=== PATIENT | female | born 1995 | race Caucasian/White ===

== ENCOUNTER → 2022-09-04 | Outpatient (CLI) | payer BC ==
[2022-09-06 15:09] LABS: HPV 16 Negative (Negative); HPV 18 Negative (Negative); HPV OTHER HR TYPES Negative (Negative)
== END | disposition home or self-care (01) ==
LOC: LAB 11:04 → LAB SHORT 11:04
PROVIDERS: Family Medicine
DX: Z01.411 Encounter for gynecological examination (general) (routine) with abnormal findings (principal)
CPT/HCPCS: 87624; G0145

== ENCOUNTER 2024-01-13 08:28 | Emergency (ER) | payer OTHER ==
[~2024-01-13] VITALS: Ht 177.8 cm; Wt 108.4 kg
[2024-01-13 09:27] VITALS: BP 144/97
[2024-01-13 10:16] LABS: Source, Urine Clean Catch
[2024-01-13 10:26] LABS: Bilirubin, Urine Neg (Neg); Blood, Urine Neg (Neg); Glucose Qualitative, Urine Neg (Neg); Ketones, Urine Neg (Neg); Leukocyte Esterase, Urine 1+ (Neg); Nitrite, Urine Neg (Neg); Protein, Urine Neg (Neg); Specific Gravity, Urine 1.015 (1.003-1.022); Urobilinogen, Urine NORM (Normal)
[2024-01-13 10:35] LABS: Appearance, Urine Clear (Clear); Color, Urine Yellow (P-Yellow)
[2024-01-13 10:36] LABS: Bacteria Rare /hpf; Red Blood Cells, Urine Not Seen /hpf (0-2); Squamous Epithelial Cells Few /hpf (Few); White Blood Cells, Urine 0-2 /hpf (0-5)
[2024-01-13] MEDS ORDERED: Diflucan150 MG PO (10:49)
[2024-01-14] MEDS ORDERED: Diflucan150 MG PO (14:08)
== END 2024-01-13 11:03 ==
LOC: ER 08:28
PROVIDERS: Physician Assistant
DX: B37.31 Acute candidiasis of vulva and vagina (principal); R82.90 Unspecified abnormal findings in urine; Z79.899 Other long term (current) drug therapy
CPT/HCPCS: 81001; 81025; 87086; 99283